=== PATIENT | male | born 1965 | race Two or more races ===

== ENCOUNTER 2025-02-24 09:17 | Emergency (ER) | payer OTHER ==
[~2025-02-24] VITALS: Ht 182.9 cm; Wt 77.1 kg
[2025-02-24] MEDS ORDERED: ORPHENADRINE CITRATE 30 MG/ML AMPUL IM ONE (11:15)
[2025-02-24] MEDS ORDERED: KETOROLAC TROMETHAMINE 60 MG VIAL IM ONE (11:15)
== END 2025-02-24 13:07 ==
LOC: ER 09:17
DX: M54.42 Lumbago with sciatica, left side (principal); M51.369 Other intervertebral disc degeneration, lumbar region without mention of lumbar back pain or lower extremity pain